=== PATIENT | male | born 1935 | race Caucasian/White ===

== ENCOUNTER → 2016-05-22 | Outpatient (CLI) | payer MEDICARE, OTHER | LOC: MW.CHPOD 08:00 | CPT/HCPCS: 11721; 99204 ==

== ENCOUNTER → 2016-07-08 | Outpatient (CLI) | payer MEDICARE, OTHER ==
[2016-07-08 09:56] LABS: CHLORIDE,CL 105 mmol/L (98-110); SODIUM,NA 140 mmol/L (136-146)
--- NOTE | 2016-07-08 15:15 | CR ---
EXAMINATION: Pelvis and left hip HISTORY: Pain COMPARISON: 06/02/2013 TECHNIQUE: AP pelvis and 2 views of the left hip FINDINGS: There are is no fracture or acute osseous abnormality. Bone mineralization appears normal. Joint spaces are grossly preserved. The SI joints are symmetric. Bone mineralization appears normal . Minimal vascular calcifications are noted. IMPRESSION: Grossly unremarkable pelvis and left hip.
== END ==
LOC: MW.CHIM 09:09
PROVIDERS: ATTEND Internal Medicine
DX: M25.552 Pain in left hip (principal); E78.5 Hyperlipidemia, unspecified; N18.9 Chronic kidney disease, unspecified; I48.91 Unspecified atrial fibrillation; I25.10 Atherosclerotic heart disease of native coronary artery without angina pectoris; I50.9 Heart failure, unspecified; E11.9 Type 2 diabetes mellitus without complications; I87.2 Venous insufficiency (chronic) (peripheral)
CPT/HCPCS: 36415; 73502-26-LT; 73502-LT; 80053; 83036; 83880; 85025; 99215

== ENCOUNTER → 2016-07-23 | Outpatient (CLI) | payer MEDICARE, OTHER | LOC: MW.CHPOD 08:00 | PROVIDERS: ATTEND Podiatrist Foot & Ankle Surgery | DX: R26.9 Unspecified abnormalities of gait and mobility (principal); R60.0 Localized edema; M79.673 Pain in unspecified foot; E11.9 Type 2 diabetes mellitus without complications; B35.1 Tinea unguium; I73.9 Peripheral vascular disease, unspecified | CPT/HCPCS: 11721; G0463 ==

== ENCOUNTER 2017-01-20 06:54 | Day surgery (SDC) | payer MEDICARE, OTHER ==
[2017-01-20] MEDS ORDERED: Sodium Chloride 0.9% 2.5 ML Syringe FLUSH PRN (07:00)
[2017-01-20] MEDS ORDERED: Lactated Ringers 1,000 ML IV SCH (07:00)
[2017-01-20] MEDS ORDERED: Sodium Chloride 0.9% 10 ML Syringe FLUSH PRN (07:00)
[2017-01-20] MEDS ORDERED: ceFAZolin 1 GM in Premix Bag 1 BAG IV ONE (07:00)
[2017-01-20] MEDS ORDERED: Lidocaine 1% 50 ML MDV ONE (07:18)
[2017-01-20] MEDS ORDERED: ceFAZolin 1 GM Vial ONE (08:55)
--- NOTE | 2017-01-20 09:56 | OR ---
SURGEON: Fabio Garcia M.D. DATE OF PROCEDURE: 01/20/2017 PREOPERATIVE DIAGNOSIS: Phimosis. POSTOPERATIVE DIAGNOSIS: Phimosis. OPERATION: Circumcision. DESCRIPTION OF OPERATION: The patient was placed in the supine position. External genital area was prepped and draped in sterile drapes. A 1% lidocaine was infiltrated circumferentially behind the line of circumcision. The incision was then made and eventually all the foreskin was removed. Bleeding points were tied with 4-0 chromic. The skin edges were reapproximated using interrupted and running 4-0 chromic sutures. Estimated blood loss, under 2 mL. The patient tolerated the procedure well and was moved to recovery room in good condition. SAVANA / IRIS /[id number]
== END 2017-01-20 10:30 | disposition home or self-care (01) ==
LOC: MW.SDS 06:54
PROVIDERS: ATTEND Urology
DX: N47.1 Phimosis (principal); N42.9 Disorder of prostate, unspecified; Z87.442 Personal history of urinary calculi; Z95.0 Presence of cardiac pacemaker; Z98.890 Other specified postprocedural states; Z79.899 Other long term (current) drug therapy; Z79.01 Long term (current) use of anticoagulants
CPT/HCPCS: 54161; J0690; J7120; 82962; 88305